=== PATIENT | female | born 1975 | race African-American/Black ===

== ENCOUNTER 2016-07-27 19:10 | Emergency (ER) | payer BC ==
[~2016-07-27] VITALS: Ht 162.6 cm; Wt 102.0 kg
[~2016-07-27 19:10] MED LIST: BENTYL10 MG PO; CIPRO500 MG PO; FIORICET,ESG1 TABLET PO; MEGACE40 MG PO; Motrin PO; NOHOMEMEDS; PROMETHAZINE HC25 M1 PO; ULTRAM50 MG PO
[2016-07-27 20:00] LABS: HEMATOCRIT 34.5 % (36.0-46.0); MCH 20.7 PG (29.0-34.0); MCHC 29.3 G/DL (30.0-36.0); MCV 70.6 FL (83-99); PLATELET COUNT 324 K/uL (156-360); RBC DIS.WIDTH-CV 20.1 % (11.8-14.6); RBC DIS.WIDTH-SD 50.4 % (39-53); RED BLOOD COUNT 4.89 M/uL (3.80-5.20); WHITE BLOOD COUNT 7.7 K/uL (4.1-10.2)
[2016-07-27] MEDS ORDERED: ZOFRAN4 MG PO (20:55)
[2016-07-27] MEDS ORDERED: PERCOCET 5/31 TABLET PO (20:55)
[2016-07-27] MEDS ORDERED: MEDROXYPROGESTE10 MG PO (21:56)
[2016-07-27 22:05] VITALS: BP 132/88
== END 2016-07-27 22:08 | disposition home or self-care (01) ==
LOC: EME 19:10
DX: N93.9 Abnormal uterine and vaginal bleeding, unspecified (principal); D64.9 Anemia, unspecified; G43.909 Migraine, unspecified, not intractable, without status migrainosus
CPT/HCPCS: 84702; 85027; 99281; 99285; J2405; J7030

== ENCOUNTER 2016-12-18 17:39 | Emergency (ER) | payer BC ==
[~2016-12-18] VITALS: Ht 165.1 cm; Wt 111.5 kg
[~2016-12-18 17:39] MED LIST changes: +MEDROXYPROGESTE10 MG PO; +PERCOCET 5/31 TABLET PO; +ZOFRAN4 MG PO
[2016-12-18 19:02] LABS: CHLORIDE 108 mEq/L (99-109); POTASSIUM 3.4 mEq/L (3.7-5.4); SODIUM 139 mEq/L (136-147)
[2016-12-18 19:04] LABS: GLUCOSE 104 mg/dL (70-99)
[2016-12-18 19:06] LABS: ANION GAP 6 MEQ/L (2-14); TOTAL BILIRUBIN 0.2 mg/dL (0.0-1.0)
[2016-12-18 19:07] LABS: HEMATOCRIT 38.1 % (36.0-46.0); MCH 22.7 PG (29.0-34.0); MCHC 30.7 G/DL (30.0-36.0); RBC DIS.WIDTH-CV 20.8 % (11.8-14.6); RBC DIS.WIDTH-SD 54.2 % (39-53); RED BLOOD COUNT 5.15 M/uL (3.80-5.20); WHITE BLOOD COUNT 8.9 K/uL (4.1-10.2)
[2016-12-18 19:08] LABS: ALKALINE PHOSPHATASE 55 IU/L (3-129); GFR ESTIMATE (CALCULATED) > 59 mL/min/
[2016-12-18 19:09] LABS: UREA NITROGEN (BUN) 16 mg/dL (9-23)
[2016-12-18 19:18] LABS: QUANTITATIVE HCG < 4.0 MIU/ML
[2016-12-18 19:24] LABS: MEAN PLAT.VOLUME 10.6 uM^3 (9.5-12.4); PLATELET COUNT 278 K/uL (156-360)
[2016-12-18 20:03] LABS: ADD MIUA? NO; BILIRUBIN NEGATIVE; BLOOD NEGATIVE; COLOR YELLOW ((YELLOW)); GLUCOSE (STRIP) NEGATIVE; KETONES NEGATIVE; LEUKOCYTES NEGATIVE; NITRITE NEGATIVE; PROTEIN (STRIP) NEGATIVE; SPECIFIC GRAVITY 1.024 (1.000-1.030); UCUL ADDED? NO; UROBILINOGEN 0.2 MG/DL (0.2-1.0)
[2016-12-18 22:30] VITALS: BP 148/70
== END 2016-12-18 22:34 | disposition home or self-care (01) ==
LOC: EME 17:39
DX: D25.9 Leiomyoma of uterus, unspecified (principal); Z88.0 Allergy status to penicillin
CPT/HCPCS: 76856; 80053; 81003; 84702; 85027; 99281; 99284